=== PATIENT | female | born 1970 | race Asian ===

== ENCOUNTER 2021-01-31 06:35 | Day surgery (SDC) | payer MEDICARE, MEDICAID, SELFPAY ==
[~2021-01-31] VITALS: Ht 157.5 cm; Wt 90.7 kg
[2021-01-31 06:58] LABS: HCG,QUAL RESULT NEGATIVE (NEGATIVE)
[2021-01-31] MEDS ORDERED: CEFAZOLIN SOD 1 GM in D5W 50 ML IV ONE (07:00)
[2021-01-31] MEDS ORDERED: ACETAMINOPHEN I.V. 1000 MG 100 ML IV ONE (08:33)
[2021-01-31] MEDS ORDERED: MEPERIDINE HCL/PF 25 MG/ML DISP.SYRIN IVP PRN (08:45)
[2021-01-31] MEDS ORDERED: METOCLOPRAMIDE HCL 10 MG/2 ML VIAL IVP PRN (08:45)
[2021-01-31] MEDS ORDERED: hydrALAZINE HCL 20 MG/ML VIAL IVP PRN (08:45)
[2021-01-31] MEDS ORDERED: HYDROmorphone 1 MG/ML INJ. CARTRIDGE IVP PRN ×3 (08:45→09:15)
[2021-01-31] MEDS ORDERED: LR 1,000 ML IV SCH (08:45)
[2021-01-31] MEDS ORDERED: MIDAZOLAM HCL 2 MG/2 ML VIAL (VERSED) IVP PRN (08:45)
[2021-01-31] MEDS ORDERED: LABETALOL 100 MG/ 20ML VIAL IVP PRN (08:45)
[2021-01-31] MEDS ORDERED: ONDANSETRON HCL 4 MG/2 ML VIAL IVP PRN (08:45)
[2021-01-31] MEDS ORDERED: HYDROcodone/ACETAMIN 5-325 MG TAB (NORCO/ VICODIN) PO PRN ×2 (09:15)
[2021-01-31] MEDS ORDERED: D5/0.45 NS 1,000 ML IV SCH (09:15)
[2021-01-31] MEDS ORDERED: HYDROmorphone 1 MG/ML INJ. CARTRIDGE ONE (10:05)
[2021-01-31 10:51] VITALS: BP_SYST 135
[2021-01-31] MEDS ORDERED: HYDROcodone/ACETAMIN 5-325 MG TAB (NORCO/ VICODIN) ONE (11:11)
== END 2021-01-31 13:10 | disposition home or self-care (01) ==
LOC: SMU 06:35 → SDS 06:35
PROVIDERS: ATTEND Colon & Rectal Surgery
DX: K80.10 Calculus of gallbladder with chronic cholecystitis without obstruction (principal); I10 Essential (primary) hypertension; E11.9 Type 2 diabetes mellitus without complications; K21.9 Gastro-esophageal reflux disease without esophagitis; F31.4 Bipolar disorder, current episode depressed, severe, without psychotic features; E66.9 Obesity, unspecified; Z79.899 Other long term (current) drug therapy; Z20.822 Contact with and (suspected) exposure to COVID-19
CPT/HCPCS: 47563; 74300; 76000; 82948; 82962; 84703; 88304; C1727; C1758; J0131; J0690; J1170; J7060; Q9967; U0003